=== PATIENT | female | born 1980 | race African-American/Black ===

== ENCOUNTER 2016-07-19 14:59 | Emergency (ER) | payer MEDICAID ==
[~2016-07-19] VITALS: Ht 162.6 cm; Wt 107.5 kg
[~2016-07-19 14:59] MED LIST: TELM40TA11
[2016-07-19 15:06] VITALS: BP 137/89
[2016-07-19] MEDS ORDERED: IBUPROFEN 800 MG TAB PO ONE (18:00)
== END 2016-07-19 18:06 | disposition home or self-care (01) ==
LOC: EDBD 14:59 → ER 15:08
DX: S93.602A Unspecified sprain of left foot, initial encounter (principal); I10 Essential (primary) hypertension; F17.210 Nicotine dependence, cigarettes, uncomplicated; W01.0XXA Fall on same level from slipping, tripping and stumbling without subsequent striking against object, initial encounter; Y93.89 Activity, other specified; Y99.9 Unspecified external cause status; Y92.89 Other specified places as the place of occurrence of the external cause
CPT/HCPCS: 73610; 73630

== ENCOUNTER 2018-05-14 15:49 | Emergency (ER) | payer MEDICAID ==
[~2018-05-14] VITALS: Ht 152.4 cm; Wt 90.3 kg
[2018-05-14 16:00] VITALS: BP 131/96
[2018-05-14 20:50] LABS: Urine Bacteria NONE SEEN /hpf (None Seen); Urine Blood Negative /uL (Negative); Urine Hyaline Cast FEW /lpf (0 - 2); Urine Mucus MODERATE (None Seen); Urine Specific Gravity 1.035 (1.001-1.035); Urine WBC 13 /hpf (0 - 5)
== END 2018-05-14 22:34 | disposition left against medical advice (07) ==
LOC: ER 15:49
DX: I10 Essential (primary) hypertension (principal); Z53.21 Procedure and treatment not carried out due to patient leaving prior to being seen by health care provider
CPT/HCPCS: 81001; 81025

== ENCOUNTER 2018-05-28 17:50 | Observation (INO) | payer MEDICAID ==
[2018-05-28 20:14] LABS: Basophils # (auto) 0.1 uL; Basophils % (auto) 0.6 % (0.0-2.0); Eosinophils # (auto) 0.2 uL; Eosinophils % (auto) 1.4 % (0.0-7.0); Hematocrit 39.7 % (36.0-46.0); Hemoglobin 13.1 g/dL (12.2-16.2); Lymphocytes # (auto) 2.6 uL; Lymphocytes % (auto) 22.3 % (10.0-50.0); Mean Corpuscular Hemoglobin 30.2 pg (28.0-32.0); Mean Corpuscular Volume 91.5 fL (80.0-100.0); Monocytes # (auto) 0.8 uL; Monocytes % (auto) 6.9 % (0.0-12.0); Neutrophils % (auto) 68.8 % (37.0-80.0); Nucleated Red Blood Cells % 0.1 %; Platelet Count (auto) 379 10^3/uL (140-450); Red Blood Cells 4.34 10^6/uL (4.0-5.20); Red Cell Distribution Width 13.8 % (11.8-14.3); White Blood Cell 11.6 10^3/uL (4.4-10.8)
[2018-05-28 20:26] LABS: INR 0.93 (0.9-1.15); Partial Thromboplastin Time 26.4 sec (23.78-33.04)
[2018-05-28 20:29] LABS: Albumin 2.3 g/dL (3.4-5.0); Potassium 4.1 mmol/L (3.5-5.1); Uric Acid 3.7 mg/dL (2.6-6.0)
[2018-05-28 20:33] LABS: BUN/Creatinine Ratio 20.7; Bilirubin, Total 0.1 mg/dL (0.2-1.0); Total Protein 6.2 g/dL (6.4-8.2)
[2018-05-30 08:05] LABS: RPR Non Reactive (Non Reactive)
[2018-05-30 12:06] LABS: Rubella Antibodies, IgG 1.36 index (Immune >0.99)
== END 2018-05-28 20:46 | disposition home or self-care (01) | DRG 566 ==
LOC: LDRP 17:50
PROVIDERS: ADMIT Obstetrics & Gynecology; ATTEND Obstetrics & Gynecology
DX: O26.892 Other specified pregnancy related conditions, second trimester (principal); R10.9 Unspecified abdominal pain; Z3A.20 20 weeks gestation of pregnancy
CPT/HCPCS: 36415; 59025; 76805; 80053; 81002; 84550; 85025; 85610; 85730; 86592; 86762; 86850; 86900; 86901; 87340; G0378

== ENCOUNTER 2018-06-14 12:20 | Observation (INO) | payer MEDICAID | END 2018-06-14 13:43 | disposition home or self-care (01) | DRG 566 | LOC: LDRP 12:20 | PROVIDERS: ADMIT Specialist; ATTEND Specialist | DX: O26.893 Other specified pregnancy related conditions, third trimester (principal); M54.9 Dorsalgia, unspecified; R10.9 Unspecified abdominal pain; O09.523 Supervision of elderly multigravida, third trimester; Z3A.29 29 weeks gestation of pregnancy | CPT/HCPCS: 59025; 81002; G0378 ==